=== PATIENT | male | born 1995 | race Caucasian/White ===

== ENCOUNTER 2017-04-25 15:14 | Emergency (ER) | payer SELFPAY ==
[~2017-04-25] VITALS: Ht 177.8 cm; Wt 102.7 kg
[~2017-04-25 15:14] MED LIST: CEFTIN500 MG PO; TYLENOL WITH C1 EACH PO; [UNRECOGNIZED DRUG - REMARK]
[2017-04-25 15:32] VITALS: BP 163/91
[2017-04-25] MEDS ORDERED: KEFLEX500 MG PO (18:57)
[2017-04-25] MEDS ORDERED: NORCO 5/3251 TABLET PO (18:57)
== END 2017-04-25 19:38 | disposition home or self-care (01) ==
LOC: EME 15:14
PROC: 0HCGXZZ Extirpation of Matter from Left Hand Skin, External Approach (ICD-10-PCS; principal; 2017-04-25)
DX: S61.042A Puncture wound with foreign body of left thumb without damage to nail, initial encounter (principal); S62.512D Displaced fracture of proximal phalanx of left thumb, subsequent encounter for fracture with routine healing; F17.200 Nicotine dependence, unspecified, uncomplicated; W29.4XXA Contact with nail gun, initial encounter
CPT/HCPCS: 73130; 99281; 99283